=== PATIENT | female | born 1965 | race Caucasian/White ===

== ENCOUNTER 2017-09-09 19:14 | Emergency (ER) | payer OTHER ==
[~2017-09-09] VITALS: Ht 157.5 cm; Wt 56.2 kg
[2017-09-09 19:25] VITALS: BP 187/103
--- NOTE | 2017-09-09 19:27 | NUR ---
PT AMBULATED TO [facility]
--- NOTE | 2017-09-09 19:28 | NUR ---
52 Y/O F W/C/O UNEXPLAIN BRUISES TO R LOWER LEG X 1 WK AGO. PT DENIES ANY PAIN OR NUMBNESS OR SOB. ONE BRUISE TO R LEG NOTED. MED HX HTN, BRAIN TUMOR. NO OTHER S/S OF DISTRESS NOTED. PA MADE AWARE.
[2017-09-09 19:54] VITALS: BP 187/103
--- NOTE | 2017-09-09 19:54 | NUR ---
PATIENT ELOPED FROM FACILITY. DISCHARGE INSTRUCTIONS NOT GIVEN TO PATIENT. JANETH WEBBER NOTIFIED.
== END 2017-09-09 19:54 | disposition left against medical advice (07) ==
LOC: MED 19:14
DX: S80.12XA Contusion of left lower leg, initial encounter (principal); I10 Essential (primary) hypertension; X58.XXXA Exposure to other specified factors, initial encounter; Y93.89 Activity, other specified; Y92.89 Other specified places as the place of occurrence of the external cause; Y99.8 Other external cause status
CPT/HCPCS: 99281